=== PATIENT | male | born 1995 | race African-American/Black ===

== ENCOUNTER 2017-02-27 20:40 | Emergency (ER) | payer MEDICAID ==
[~2017-02-27] VITALS: Ht 205.7 cm; Wt 88.5 kg
[2017-02-27 20:56] VITALS: BP 140/89
[2017-02-27 21:44] LABS: DEFINITIVE VIEW TRANSMISSION; Hematocrit 43.9 % (41.0-53.0); Hemoglobin 14.3 g/dL (13.5-17.5); Mean Corpuscular Hemoglobin 27.6 pg (28.0-32.0); Mean Corpuscular Hgb Conc. 32.6 g/dL (32.0-36.0); Mean Corpuscular Volume 84.7 fL (80.0-100.0); Mean Platelet Volume 10.1 fL (7.4-10.4); Platelet Count (auto) 217 10^3/uL (140-450); Red Cell Distribution Width 14.1 % (11.6-16.0); SUSPECT VIEW TRANSMISSION
[2017-02-27 21:59] LABS: Albumin 4.3 g/dL (3.4-5.0); Alkaline Phosphatase 113 U/L (45-117); Anion Gap 14 (5-15); Aspartate Aminotransferase 48 U/L (15-37); BUN/Creatinine Ratio 10.5; Bilirubin, Total 0.4 mg/dL (0.2-1.0); Blood Urea Nitrogen 9 mg/dL (7-18); Calcium 9.3 mg/dL (8.5-10.1); Carbon Dioxide 23 mmol/L (21-32); Chloride 106 mmol/L (98-107); GFR African American 146 mL/min; GFR Non-African American 121 mL/min; Glucose 91 mg/dL (74-106); Potassium 3.7 mmol/L (3.5-5.1); Sodium 143 mmol/L (136-145)
[2017-02-27 22:02] LABS: B-Type Natriuretic Peptide 18.56 pg/mL (0-100)
[2017-02-27 22:11] LABS: Metamyelocytes % 0; Myelocytes % 0; Promyelocytes % 0
[2017-02-27 22:16] LABS: Temperature: 23.8 C (20.0-25.0)
[2017-02-27 22:55] LABS: Anisocytosis Slight; Ovalocytes FEW; Platelet Estimate Adequate; Reactive Lymphocytes 7
== END 2017-02-27 23:09 | disposition left against medical advice (07) ==
LOC: ER 20:41
DX: R07.9 Chest pain, unspecified (principal); Z53.21 Procedure and treatment not carried out due to patient leaving prior to being seen by health care provider
CPT/HCPCS: 36415; 71010; 80053; 83880; 84484; 85007; 85027; 93005

== ENCOUNTER → 2017-04-04 | Outpatient (CLI) | payer MEDICAID | END | disposition home or self-care (01) | LOC: Rad HDHVI 14:39 | PROVIDERS: ATTEND Internal Medicine Cardiovascular Disease | DX: Z01.818 Encounter for other preprocedural examination (principal); R07.9 Chest pain, unspecified | CPT/HCPCS: 71020; 93306 ==

== ENCOUNTER → 2017-04-06 | Outpatient (CLI) | payer MEDICAID ==
[~2017-04-06] VITALS: Ht 205.7 cm; Wt 87.1 kg
== END | disposition home or self-care (01) ==
LOC: Rad HDHVI 08:27
PROVIDERS: ATTEND Internal Medicine Cardiovascular Disease
DX: R07.9 Chest pain, unspecified (principal)
CPT/HCPCS: 93017

== ENCOUNTER → 2017-07-03 | Outpatient (CLI) | payer MEDICAID | END | disposition home or self-care (01) | LOC: Rad HDHVI 09:01 | PROVIDERS: ATTEND Internal Medicine Cardiovascular Disease | DX: I42.9 Cardiomyopathy, unspecified (principal); I51.4 Myocarditis, unspecified | CPT/HCPCS: 93306 ==